=== PATIENT | female | born 1960 | race American Indian/Alaskan Native ===

== ENCOUNTER 2018-04-06 06:40 | Inpatient (IN) | payer MEDICARE, MEDICAID ==
[~2018-04-06 06:40] MED LIST: Absorbable Gelatin Sponge Size 100 ONE; Bacitracin Ointment 30 GM TUBE ONE; Lidocaine Hydrochloride 0 ML INJ ONE; Lidocaine/Epinephrine 1% 1:100000 10 ML IJ ONE; Sodium Chloride 0.9% 60 ML IV ONE; Thrombin Topical 5,000 Int Units Spray Kit ONE; ceFAZolin IV 1 gm in Dextrose 0 GM/0 ML BAG IVPB ONE
[2018-04-06] MEDS ORDERED: Propofol 10 mg/ml 2,000 MG/200 ML VIAL ONE (07:46)
[2018-04-06] MEDS ORDERED: Propofol 10 mg/ml Inj (20 ML) ONE (07:54)
[2018-04-06] MEDS ORDERED: Midazolam 2 MG/2 ML VIAL ONE (07:55)
[2018-04-06] MEDS ORDERED: Clindamycin 600mg/50ml NS 600 MG/50 ML BAG IVPB ONE (08:02)
[2018-04-06 08:04] LABS: SQUAMOUS EPITHIAL 6 /hpf (0-5); URINE BACTERIA RARE (<OCC); URINE BILIRUBIN NEGATIVE (NEGATIVE); URINE BLOOD NEGATIVE (NEGATIVE); URINE CLARITY Hazy (Clear); URINE COLOR Amber (YELLOW); URINE GLUCOSE (UA) NORMAL (Normal); URINE HYALINE CAST >20 /lpf (0-2); URINE LEUKOCYTE ESTERASE 2+ Leu/uL (Negative); URINE PROTEIN 1+ mg/dL (NEGATIVE)
[2018-04-06] MEDS ORDERED: Bupivacaine Liposomal Inj 20 ml INJ ONE (08:15)
[2018-04-06] MEDS ORDERED: Bacitracin 50,000 UNIT in Sodium Chloride 0.9% Irrig 1,000 ML IR SCH (08:15)
[2018-04-06] MEDS ORDERED: Lidocaine 1%/Epinephrine 1:100000 30 ml vial INJ ONE (08:45)
[2018-04-06] MEDS: Bupivacaine 0.25% 20 ML INJ IJ ONE ×2 (09:06→10:55)
[2018-04-06] MEDS ORDERED: Albuterol 0.083% Inhal Sol (2.5 mg/3 mL) UD INH PRN (11:27)
[2018-04-06] MEDS: HYDROmorphone 0.5 mg/0.5 ml ISec IVP PRN ×5 (11:41→13:08)
[2018-04-06] MEDS ORDERED: Dexamethasone 4 mg/1 ml IVP PRN (12:00)
--- NOTE | 2018-04-06 12:29 | RAD ---
Date of service: 04/06/2018 PROCEDURE: Intraoperative fluoroscopy HISTORY: DISC DISPLACEMENT LUM. REGION COMPARISON: Not available TECHNIQUE: Intraoperative fluoroscopy was provided for interventional pain management procedure. Total time of fluoroscopy was 128.2 seconds. Cumulative dose is 90.11 mGy. FINDINGS: Three fluoroscopic spot films are submitted. IMPRESSION: Fluoroscopy provided.
[2018-04-06] MEDS ORDERED: Lactated Ringer's 1,000 ML IV ONE (13:30)
--- NOTE | 2018-04-06 14:03 | CT ---
Date of service: 04/06/2018 PROCEDURE: CT Lumbar Spine without contrast HISTORY: Postoperative assessment COMPARISON: Made with plain film radiographs of the and MRI of the lumbar spine in both dated 12/23/2017 TECHNIQUE: Axial computed tomography images were obtained of the lumbar spine without the use of intravenous contrast. Coronal and sagittal reformatted images were created and reviewed. Radiation dose: Total exam DLP = 1441.92 mGy-cm. This CT exam was performed using one or more of the following dose reduction techniques: Automated exposure control, adjustment of the mA and/or kV according to patient size, and/or use of iterative reconstruction technique. . FINDINGS: VERTEBRAE: No acute compression fractures no retropulsed fragments. DISCS/SPINAL CANAL/NEURAL FORAMINA: L1-2: Disc space height maintained. No disc herniation or significant disc bulge. Facets also mildly hypertrophic. . L2-3: Disc space height maintained. No disc herniation or significant disc bulge. . The facets are mildly hypertrophic. . L3-4: There is adequate disc height. Small central and bilateral disc bulge seen to better advantage on prior MRI is less well appreciated on this exam in part due to differences in modality as well as the aforementioned streak and beam hardening artifact. The facets remain mildly hypertrophic. Central canal appears slightly narrowed as well. Exit foramina appear adequate. L4-5: Bilateral laminectomy changes seen extending from the superior aspect of the L4 through the inferior L5 levels. . Posterior fixation has been accomplished by placement of short segment bilateral Arguello rods which are attached to the right and left pedicles of the L4 and L5 segments. The central bony canal is quite capacious however soft tissue contents of the canal is poorly seen due to significant crossing streak and beam hardening artifact particularly at the level of the fixation screws. . There are postoperative changes seen in the mid and right posterior paraspinal soft tissues which include a few bubbles of air what appears represent a small amount of fluid and infiltration changes of the overlying subcutaneous fat extending posteriorly was the skin surface. Subcutaneous infiltration changes and a few scattered bubbles of air are also seen superiorly within the posterior paraspinal soft tissues bilaterally extending up to the L2-L3 disc space level and inferiorly to below the L5-S1 level. . L5-S1: There is are relatively adequate disc height. Small left parasagittal and left lateral disc herniation is present at this level. Facets are hypertrophic and flavum buckled. There is resultant bilateral lateral recess stenosis left greater than right. Central canal also appears mildly stenotic. Exit foramina appear adequate. . PARASPINAL SOFT TISSUES: As above OTHER FINDINGS: In situ unclamped Barber catheter over which the bladder is collapsed. IMPRESSION: Bilateral laminectomy L4-L5 level as detailed above. Broad-based disc bulge with left parasagittal disc herniation component L5-S1 level. Canal contents over the fused levels and difficult to evaluate due to streak and beam hardening artifact. There are expected postoperative changes within the posterior paraspinal soft tissues centrally and to the right more so than left. Mild infiltration changes and bubbles of air seen superiorly to the Changes result in bilateral lateral recess left greater than right and mild central canal stenosis.
[2018-04-06] MEDS: Potassium Ch 20mEq in D5-1/2NS 1,000 ML IV SCH (17:48)
[2018-04-06] MEDS ORDERED: HYDROmorphone 1 mg/ml ISec IVP STA (18:04)
[2018-04-06] MEDS: Fluticasone-Salmeterol 250-50mcg Diskus INH SCH (19:34)
[2018-04-06] MEDS: Albuterol-Ipratrop 3 mg / 0.5 (3 ml) UD INH SCH (19:34)
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
[2018-04-07 01:29] VITALS: RESP 20
[2018-04-07] MEDS: Potassium Ch 20mEq in D5-1/2NS 1,000 ML IV SCH ×3 (05:42→12:30)
[2018-04-07] MEDS: Albuterol-Ipratrop 3 mg / 0.5 (3 ml) UD INH SCH ×3 (07:35→22:45)
[2018-04-07] MEDS: Fluticasone-Salmeterol 250-50mcg Diskus INH SCH ×2 (07:35→22:45)
[2018-04-07] MEDS ORDERED: Tiotropium 18 mcg Cap For Inhalation IH SCH (08:00)
--- NOTE | 2018-04-07 09:42 | CP.PCM.PN ---
Subjective - Date & Time of Evaluation Date of Evaluation: 04/07/18 Time of Evaluation: 09:41 - Subjective Subjective: pod 1 doing very well has usual op site pain good st no dec to pin adv act Objective - Vital Signs/Intake and Output Vital Signs (last 24 hours): Temp Pulse Resp BP Pulse Ox 98.1 F 88 20 105/64 100 04/07/18 07:15 04/07/18 07:15 04/07/18 07:15 04/07/18 07:15 04/07/18 07:15 Intake and Output: 04/07/18 04/07/18 06:59 18:59 Intake Total 980 Balance 980 - Medications Medications: Current Medications Albuterol Sulfate (Albuterol 0.083% Inhal Geno (2.5 Mg/3 Ml) Ud) 2.5 mg INH ONCE PRN PRN Reason: Wheezing Albuterol/Ipratropium (Duoneb 3 Mg/0.5 Mg (3 Ml) Ud) 3 ml INH RQ6 [facility] Last Admin: 04/07/18 07:35 Dose: 3 ml Enoxaparin Sodium (Lovenox) 40 mg SC DAILY [facility] Hydromorphone/Sodium Chloride (Dilaudid Heavy Forging Machine Operator) 6 mg IV Q4H PRN; Protocol PRN Reason: Pain, severe (8-10) Last Admin: 04/06/18 19:42 Dose: 6 mg Potassium Chloride/Dextrose/Sod Cl (Potassium Chl 20 Meq In D5-1/2ns) 1,000 mls @ 80 mls/hr IV .[id number] [facility] Last Admin: 04/07/18 05:42 Dose: 80 mls/hr Loratadine (Claritin) 10 mg PO DAILY [facility] Metoclopramide HCl (Reglan) 10 mg PO QID [facility] Last Admin: 04/06/18 22:09 Dose: 10 mg Montelukast Sodium (Singulair) 10 mg PO DAILY [facility] Pantoprazole Sodium (Protonix Ec Tab) 40 mg PO DAILY [facility] Polyethylene Glycol (Miralax) 17 gm PO BID PRN PRN Reason: Constipation Rosuvastatin Calcium (Crestor) 10 mg PO HS [facility] Last Admin: 04/06/18 22:08 Dose: 10 mg Fluticasone/Salmeterol (Advair Diskus 250/50) 1 puff INH RQ12 [facility] Last Admin: 04/07/18 07:35 Dose: Not Given Sucralfate (Carafate Tab) 1 gm PO QID [facility] Last Admin: 04/06/18 22:08 Dose: 1 gm Tiotropium [place] (Spiriva) 18 mcg IH RQD [facility]
[2018-04-07] MEDS: Pantoprazole 40 mg EC Tab PO SCH (10:45)
[2018-04-07] MEDS: Enoxaparin 40 mg Syringe SC SCH (10:46)
[2018-04-07] MEDS: oxyCODONE 20 mg ER Tab (oxyCONTIN) PO SCH ×2 (10:50→22:17)
--- NOTE | 2018-04-07 11:14 | HP ---
Copied To: Ross Metcalf MD Attending MD: Ross Metcalf MD CHIEF COMPLAINT: The patient is status post back surgery. HISTORY OF PRESENT ILLNESS: Nhung is a 57-year-old female with history of obesity, hypertension, and bronchial asthma. She was compliant with her diet medication in [place]. The patient underwent back surgery by Neurosurgery, and she was admitted to the floor and Medicine was called in for medical management. The patient is postop. She is weak. She is awake and alert. She denies any shortness of breath. She denies any chest pain. No nausea or vomiting. She denies any polyuria, polydipsia, polyphagia. She denies any history of diabetes. She denies any chest pain. She denies any history of prior heart problems. The patient denies any cough, sore throat, runny nose. There is no history of dysuria, hematuria, polyuria. She denies any sneezing, itchy eyes, itchy nose. PAST MEDICAL HISTORY: Bronchial asthma, hypertension, hyperlipidemia. SOCIAL HISTORY: She is nonsmoker and nondrinker. CURRENT MEDICATIONS AT HOME: She is on Spiriva, Carafate, Reglan, Xyzal, Lipitor, Norvasc, Singulair, Symbicort, DuoNeb, albuterol, Cozaar, Dexilant, and MiraLAX. ALLERGIES: UNKNOWN ALLERGIES. PHYSICAL EXAMINATION: GENERAL: Middle-aged female, postop weak, but in no apparent distress. VITAL SIGNS: Blood pressure 105/71, pulse 77, respiratory rate 18, temperature 99.4. SKIN: Dry. Poor turgor. No bruises. No purpura. No ecchymosis. HEENT: Atraumatic, normocephalic. Negative pallor. No acute jaundice. Extraocular movements are intact. NECK: Supple. No JVD. No lymph node. No thyromegaly. No carotid bruits. CHEST WALL: Bilateral symmetrical expansion. LUNGS: No rales. No rhonchi. CVS: S1 and S2, regular. No heaves noted. ABDOMEN: Soft and nontender. Bowel sounds are positive. SPINE: The patient has a dressing. RECTAL: No masses. No bleed. PELVIC: Negative for masses. No vaginal discharge. EXTREMITIES: No clubbing, cyanosis, or edema. BATCH MAKER: Awake, alert, and oriented x3. ASSESSMENT: 1. Spinal surgery. 2. Chronic stable bronchial asthma. 3. Hypertension. 4. Obesity. PLAN: Admit. Postop care. Monitor the patient well at the time of discharge. The patient is stable for now. Ross Metcalf MD
[2018-04-07] MEDS: Oxycodone/Acetaminophen 5/325 mg Tab PO PRN ×2 (14:10→18:37)
[2018-04-07] MEDS: POLYETHYLENE GLYCOL 3350 17 GM/Dose PACKET PO PRN (18:42)
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
[2018-04-08] MEDS: Albuterol-Ipratrop 3 mg / 0.5 (3 ml) UD INH SCH ×4 (01:19→19:53)
[2018-04-08] MEDS: Fluticasone-Salmeterol 250-50mcg Diskus INH SCH ×2 (07:42→22:25)
--- NOTE | 2018-04-08 10:03 | CP.PCM.PN ---
Subjective - Date & Time of Evaluation Date of Evaluation: 04/08/18 Time of Evaluation: 10:02 - Subjective Subjective: still has sig lbp no neuro deficits no leg pain, some cramping L thigh adv act needs to go to subacute Objective - Vital Signs/Intake and Output Vital Signs (last 24 hours): Temp Pulse Resp BP Pulse Ox 98.1 F 111 H 20 115/66 99 04/08/18 07:50 04/08/18 07:50 04/08/18 07:50 04/08/18 07:50 04/08/18 07:50 Intake and Output: 04/08/18 04/08/18 06:59 18:59 Intake Total 700 Balance 700 - Medications Medications: Current Medications Albuterol Sulfate (Albuterol 0.083% Inhal Geno (2.5 Mg/3 Ml) Ud) 2.5 mg INH ONCE PRN PRN Reason: Wheezing Albuterol/Ipratropium (Duoneb 3 Mg/0.5 Mg (3 Ml) Ud) 3 ml INH RQ6 [facility] Last Admin: 04/08/18 07:42 Dose: 3 ml Enoxaparin Sodium (Lovenox) 40 mg SC DAILY [facility] Last Admin: 04/07/18 10:46 Dose: 40 mg Loratadine (Claritin) 10 mg PO DAILY [facility] Last Admin: 04/07/18 10:45 Dose: 10 mg Metoclopramide HCl (Reglan) 10 mg PO QID [facility] Last Admin: 04/07/18 22:18 Dose: 10 mg Montelukast Sodium (Singulair) 10 mg PO DAILY [facility] Last Admin: 04/07/18 10:45 Dose: 10 mg Oxycodone HCl (Oxycontin Extended Release Tab) 20 mg PO Q12 [facility] Last Admin: 04/07/18 22:17 Dose: 20 mg Oxycodone/Acetaminophen (Percocet 5/325 Mg Tab) 1 tab PO Q4H PRN PRN Reason: Pain, moderate (4-7) Stop: 04/10/18 09:41 Last Admin: 04/07/18 18:37 Dose: 1 tab Pantoprazole Sodium (Protonix Ec Tab) 40 mg PO DAILY [facility] Last Admin: 04/07/18 10:45 Dose: 40 mg Polyethylene Glycol (Miralax) 17 gm PO BID PRN PRN Reason: Constipation Last Admin: 04/07/18 18:42 Dose: 17 gm Rosuvastatin Calcium (Crestor) 10 mg PO HS [facility] Last Admin: 04/07/18 22:17 Dose: 10 mg Fluticasone/Salmeterol (Advair Diskus 250/50) 1 puff INH RQ12 [facility] Last Admin: 04/08/18 07:42 Dose: 1 puff Sucralfate (Carafate Tab) 1 gm PO QID [facility] Last Admin: 04/07/18 22:17 Dose: 1 gm Tiotropium [place] (Spiriva) 18 mcg IH RQD [facility]
[2018-04-08] MEDS: oxyCODONE 20 mg ER Tab (oxyCONTIN) PO SCH ×2 (10:18→22:08)
[2018-04-08] MEDS: Pantoprazole 40 mg EC Tab PO SCH (10:19)
[2018-04-08] MEDS: Enoxaparin 40 mg Syringe SC SCH (10:20)
--- NOTE | 2018-04-08 11:02 | PN ---
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 She is more alert. She has back pain. She is on physiotherapy. PHYSICAL EXAMINATION: VITAL SIGNS: Afebrile. Blood pressure is 103/70, pulse 100, respiratory rate 20, temperature 98.2. LUNGS: Clear. No shortness of breath. CVS: S1 and S2 are regular. ABDOMEN: Soft. ASSESSMENT: 1. Status post spinal surgery with back pain. 2. Bronchial asthma. PLAN: Continue current medication, physical therapy, and rehab. Ross Metcalf MD
[2018-04-08] MEDS: POLYETHYLENE GLYCOL 3350 17 GM/Dose PACKET PO PRN (18:44)
[2018-04-08] MEDS: Oxycodone/Acetaminophen 5/325 mg Tab PO PRN (18:51)
--- NOTE | 2018-04-08 23:20 | CP.PCM.PN ---
Objective - Vital Signs/Intake and Output Vital Signs (last 24 hours): Temp Pulse Resp BP Pulse Ox 98.2 F 102 H 20 122/90 99 04/08/18 16:00 04/08/18 16:00 04/08/18 16:00 04/08/18 16:00 04/08/18 16:00 - Medications Medications: Current Medications Albuterol Sulfate (Albuterol 0.083% Inhal [place] (2.5 Mg/3 Ml) Ud) 2.5 mg INH ONCE PRN PRN Reason: Wheezing Albuterol/Ipratropium (Duoneb 3 Mg/0.5 Mg (3 Ml) Ud) 3 ml INH RQ6 [facility] Last Admin: 04/08/18 19:53 Dose: 3 ml Enoxaparin Sodium (Lovenox) 40 mg SC DAILY [facility] Last Admin: 04/08/18 10:20 Dose: 40 mg Loratadine (Claritin) 10 mg PO DAILY [facility] Last Admin: 04/08/18 10:19 Dose: 10 mg Metoclopramide HCl (Reglan) 10 mg PO QID [facility] Last Admin: 04/08/18 22:08 Dose: 10 mg Montelukast Sodium (Singulair) 10 mg PO DAILY [facility] Last Admin: 04/08/18 10:38 Dose: 10 mg Oxycodone HCl (Oxycontin Extended Release Tab) 20 mg PO Q12 [facility] Last Admin: 04/08/18 22:08 Dose: 20 mg Oxycodone/Acetaminophen (Percocet 5/325 Mg Tab) 1 tab PO Q4H PRN PRN Reason: Pain, moderate (4-7) Stop: 04/10/18 09:41 Last Admin: 04/08/18 18:51 Dose: 1 tab Pantoprazole Sodium (Protonix Ec Tab) 40 mg PO DAILY [facility] Last Admin: 04/08/18 10:19 Dose: 40 mg Polyethylene Glycol (Miralax) 17 gm PO BID PRN PRN Reason: Constipation Last Admin: 04/08/18 18:44 Dose: 17 gm Rosuvastatin Calcium (Crestor) 10 mg PO HS [facility] Last Admin: 04/08/18 22:07 Dose: 10 mg Fluticasone/Salmeterol (Advair Diskus 250/50) 1 puff INH RQ12 [facility] Last Admin: 08/17/18 22:25 Dose: 1 puff Sucralfate (Carafate Tab) 1 gm PO QID [facility] Last Admin: 04/08/18 22:07 Dose: [address] (Spiriva) 18 mcg IH RQD [facility]
[2018-04-09] MEDS: Albuterol-Ipratrop 3 mg / 0.5 (3 ml) UD INH SCH ×3 (01:56→13:54)
--- NOTE | 2018-04-09 03:49 | PN ---
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 She is feeling better. She has back pain. She is on physiotherapy. She is for subacute rehab. PHYSICAL EXAMINATION: VITAL SIGNS: Blood pressure 131/69, pulse 77, respiratory rate 20, temperature 99. LUNGS: Clear. CARDIOVASCULAR SYSTEM: S1 and S2 are regular. ABDOMEN: Soft. ASSESSMENT: 1. Status post spinal surgery. 2. Bronchial asthma. PLAN: Continue postop care. Monitor the patient. Ross Metcalf MD
[2018-04-09] MEDS: Fluticasone-Salmeterol 250-50mcg Diskus INH SCH (07:50)
[2018-04-09] MEDS: Pantoprazole 40 mg EC Tab PO SCH (09:43)
[2018-04-09] MEDS: oxyCODONE 20 mg ER Tab (oxyCONTIN) PO SCH (09:43)
[2018-04-09] MEDS: Enoxaparin 40 mg Syringe SC SCH (09:44)
--- NOTE | 2018-04-09 13:02 | CP.PCM.PN ---
Subjective - Date & Time of Evaluation Date of Evaluation: 04/09/18 Time of Evaluation: 13:01 - Subjective Subjective: PATIENT WAS ADMITTED FOR DISC DISPLACEMENT AAOX3 / SITTING AT THE BEDSIDE/ DENIES CHEST PAIN OR SOB NO SIGN OF DISTRESS NOTED Objective - Vital Signs/Intake and Output Vital Signs (last 24 hours): Temp Pulse Resp BP Pulse Ox 98.1 F 118 H 20 117/76 98 04/09/18 07:10 04/09/18 09:46 04/09/18 07:10 04/09/18 09:46 04/09/18 07:10 - Medications Medications: Current Medications Albuterol Sulfate (Albuterol 0.083% Inhal [place] (2.5 Mg/3 Ml) Ud) 2.5 mg INH ONCE PRN PRN Reason: Wheezing Albuterol/Ipratropium (Duoneb 3 Mg/0.5 Mg (3 Ml) Ud) 3 ml INH RQ6 [facility] Last Admin: 04/09/18 08:03 Dose: 3 ml Enoxaparin Sodium (Lovenox) 40 mg SC DAILY [facility] Last Admin: 04/09/18 09:44 Dose: 40 mg Loratadine (Claritin) 10 mg PO DAILY [facility] Last Admin: 04/09/18 09:43 Dose: 10 mg Metoclopramide HCl (Reglan) 10 mg PO QID [facility] Last Admin: 04/09/18 09:43 Dose: 10 mg Montelukast Sodium (Singulair) 10 mg PO DAILY [facility] Last Admin: 04/09/18 09:43 Dose: 10 mg Oxycodone HCl (Oxycontin Extended Release Tab) 20 mg PO Q12 [facility] Last Admin: 04/09/18 09:43 Dose: 20 mg Oxycodone/Acetaminophen (Percocet 5/325 Mg Tab) 1 tab PO Q4H PRN PRN Reason: Pain, moderate (4-7) Stop: 04/10/18 09:41 Last Admin: 04/08/18 18:51 Dose: 1 tab Pantoprazole Sodium (Protonix Ec Tab) 40 mg PO DAILY [facility] Last Admin: 04/09/18 09:43 Dose: 40 mg Polyethylene Glycol (Miralax) 17 gm PO BID PRN PRN Reason: Constipation Last Admin: 04/08/18 18:44 Dose: 17 gm Rosuvastatin Calcium (Crestor) 10 mg PO HS [facility] Last Admin: 04/08/18 22:07 Dose: 10 mg Fluticasone/Salmeterol (Advair Diskus 250/50) 1 puff INH RQ12 [facility] Last Admin: 04/09/18 07:50 Dose: 1 puff Sucralfate (Carafate Tab) 1 gm PO QID [facility] Last Admin: 04/09/18 09:43 Dose: 1 gm Tiotropium [place] (Spiriva) 18 mcg IH RQD [facility] Assessment and Plan - Assessment and Plan (Free Text) Assessment: PATIENT SEEN AND EXAMINED AT THE BEDSIDE SEEN BY PT AND NEURO RECOMMEND SANJUANITA VITAL STABLE/ LAB WNL LUNG SOUND CLEAR FAWAD DISCUSS WITH DR COOK WHO CLEAR FOR DC PLACE UNDER THE SERVICE OF DR COOK AT [facility] ---CALL FOR ADMITTING ORDER FOLLOW UP WITH DR STRATTON CONTINUE ALL MED MED REC ACTIVITY TOLERATED AND FACILITY PROTOCOL CALL DR COOK OR GO TO THE EMERGENCY ROOM IF SYMPTOMS RETURN OR WORSENING DISCUSS WITH PATIENT WHO AGREE AND VERBALIZED UNDERSTANDING
--- NOTE | 2018-04-09 13:27 | CP.PCM.PN ---
Subjective - Date & Time of Evaluation Date of Evaluation: 04/09/18 Time of Evaluation: 13:25 - Subjective Subjective: SPINE - POD #3 Pt OOB in chair receiving resp tx. No new complaints. Was nauseous this am. Received her Carafate and Reglan and feels better. Amb 20' with PT yesterday VSS. Afebrile. Moves extremities actively. Neuro grossly intact Dressing clean and dry. Plan: Transfer to rehab bed today Objective - Vital Signs/Intake and Output Vital Signs (last 24 hours): Temp Pulse Resp BP Pulse Ox 98.1 F 118 H 20 117/76 98 04/09/18 07:10 04/09/18 09:46 04/09/18 07:10 04/09/18 09:46 04/09/18 07:10 - Medications Medications: Current Medications Albuterol Sulfate (Albuterol 0.083% Inhal [place] (2.5 Mg/3 Ml) Ud) 2.5 mg INH ONCE PRN PRN Reason: Wheezing Albuterol/Ipratropium (Duoneb 3 Mg/0.5 Mg (3 Ml) Ud) 3 ml INH RQ6 [facility] Last Admin: 04/09/18 08:03 Dose: 3 ml Enoxaparin Sodium (Lovenox) 40 mg SC DAILY [facility] Last Admin: 04/09/18 09:44 Dose: 40 mg Loratadine (Claritin) 10 mg PO DAILY [facility] Last Admin: 04/09/18 09:43 Dose: 10 mg Metoclopramide HCl (Reglan) 10 mg PO QID [facility] Last Admin: 04/09/18 13:02 Dose: 10 mg Montelukast Sodium (Singulair) 10 mg PO DAILY [facility] Last Admin: 04/09/18 09:43 Dose: 10 mg Oxycodone HCl (Oxycontin Extended Release Tab) 20 mg PO Q12 [facility] Last Admin: 04/09/18 09:43 Dose: 20 mg Oxycodone/Acetaminophen (Percocet 5/325 Mg Tab) 1 tab PO Q4H PRN PRN Reason: Pain, moderate (4-7) Stop: 04/10/18 09:41 Last Admin: 04/08/18 18:51 Dose: 1 tab Pantoprazole Sodium (Protonix Ec Tab) 40 mg PO DAILY [facility] Last Admin: 04/09/18 09:43 Dose: 40 mg Polyethylene Glycol (Miralax) 17 gm PO BID PRN PRN Reason: Constipation Last Admin: 04/08/18 18:44 Dose: 17 gm Rosuvastatin Calcium (Crestor) 10 mg PO HS [facility] Last Admin: 04/08/18 22:07 Dose: 10 mg Fluticasone/Salmeterol (Advair Diskus 250/50) 1 puff INH RQ12 [facility] Last Admin: 04/09/18 07:50 Dose: 1 puff Sucralfate (Carafate Tab) 1 gm PO QID [facility] Last Admin: 04/09/18 13:02 Dose: 1 gm Tiotropium [place] (Spiriva) 18 mcg IH RQD [facility]
[2018-04-09] MEDS ORDERED: Bacitracin 500 Units/gm Oint Foilpak UD TOP SCH (13:30)
[2018-04-09 17:18] VITALS: BP 117/72; PULSE 115; TEMP 98.3; O2SAT 99
--- NOTE | 2018-04-09 21:55 | CP.PCM.DIS ---
Provider - Provider Date of Admission: 04/06/18 06:40 Attending physician: Brandon Stratton MD Hospital Course - Lab Results Lab Results: Most Recent Lab Values Urine Color [place] (YELLOW) 04/06/18 07:21 Urine Clarity Hazy (Clear) 04/06/18 07:21 Urine pH 5.0 (5.0-8.0) 04/06/18 07:21 Ur Specific [place] 1.021 (1.003-1.030) 04/06/18 07:21 Urine Protein 1+ mg/dL (NEGATIVE) H 04/06/18 07:21 Urine Glucose (UA) Normal mg/dL (Normal) 04/06/18 07:21 Urine Ketones Negative mg/dL (NEGATIVE) 04/06/18 07:21 Urine Blood Negative (NEGATIVE) 04/06/18 07:21 Urine Nitrate Negative (NEGATIVE) 04/06/18 07:21 Urine Bilirubin Negative (NEGATIVE) 04/06/18 07:21 Urine Urobilinogen 2.0 mg/dL (0.2-1.0) H 04/06/18 07:21 Ur Leukocyte Esterase 2+ Joey/uL (Negative) H 04/06/18 07:21 Urine WBC (Auto) 7 /hpf (0-5) H 04/06/18 07:21 Urine RBC (Auto) 3 /hpf (0-3) 04/06/18 07:21 Ur Squamous Epith Cells 6 /hpf (0-5) H 04/06/18 07:21 Urine Bacteria Rare (<OCC) 04/06/18 07:21 Hyaline Casts >20 /lpf (0-2) H 04/06/18 07:21 Blood Type O POSITIVE 04/06/18 07:21 Antibody Screen Negative 04/06/18 07:21 Discharge Plan - Follow Up Plan Condition: GOOD Disposition: REHAB FACILITY/REHAB UNIT Instructions: Spinal Fusion, Heart Healthy Diet, Asthma, Adult (DC), Postspine Surgery Precautions Additional Instructions: PLACE UNDER THE SERVICE OF DR COOK AT [facility] [place] ---CALL FOR ADMITTING ORDER FOLLOW UP WITH DR STRATTON CONTINUE ALL MED MED REC ACTIVITY TOLERATED AND FACILITY PROTOCOL CALL DR COOK OR GO TO THE EMERGENCY ROOM IF SYMPTOMS RETURN OR WORSENING Referrals: Brandon Stratton MD [Staff Provider] - Ross Cook MD [Staff Provider] -
--- NOTE | 2018-04-10 21:24 | DS ---
Copied To: Ross Metcalf MD Attending MD: Ross Metcalf MD ADMISSION DIAGNOSIS: Back pain. DISCHARGE DIAGNOSES: Status post spinal surgery, hypertension, type 2 diabetes, bronchial asthma. HISTORY OF PRESENT ILLNESS: This is a 57-year-old female with a history of back problems, bronchial asthma, hypertension, diabetes, obesity who came in because of the back pain. She underwent spinal surgery and after spinal surgery, she was started some pain management, patient-controlled analgesia, subsequently physiotherapy. The patient's condition improved and she is being discharged to subacute rehab. Condition upon discharge is stable. PHYSICAL EXAMINATION: GENERAL: She is afebrile. VITAL SIGNS: Blood pressure 117/72, pulse 72, respiratory rate 20, temperature 98.3. LABORATORY DATA: Urinalysis showed hyaline casts. The patient's condition is stable while discharge. She has been discharged with outpatient followup. Ross Metcalf MD
--- NOTE | 2018-04-11 09:34 | OP ---
Copied To: Brandon Conklin MD Attending MD: Brandon Conklin MD PROCEDURE DATE: 04/06/2018 SURGEON: Brandon Conklin MD CO-SURGEON: Helder French MD PREOPERATIVE DIAGNOSES: Lumbar instability, spondylolisthesis, L4-L5. POSTOPERATIVE DIAGNOSES: Lumbar instability, spondylolisthesis, L4-L5. OPERATIVE PROCEDURE: Lateral fusion L4-L5 with non-segmental instrumentation harvesting right posterior iliac crest graft in form of bone marrow. DESCRIPTION OF PROCEDURE: The patient was brought to the operating room, intubated appropriately, and turned prone onto the Jarred frame. Her back was prepped and draped in the usual manner. C-arm fluoroscopy, SSEP, EMG potentials were monitored throughout the case. Neurodiagnostic studies were stable throughout. After localizing the area of the L4 and L5 pedicles, an incision was planned just above and just below that. The previous incision after prepping and draping was instilled with lidocaine with epinephrine and incised sharply, taken down through the subcuticular tissue. We came to the lumbar dorsal fascia. We went out laterally over the paraspinal musculature and to the muscle splitting incision first we started on the patient's right and split the muscle, bringing us down to the transverse processes. Using C-arm fluoroscope, we identified the appropriate transverse processes on fluoro and then proceeded to strip the transverse processes of L4 and L5 using the combination of [place] rongeur and [place] cautery from the musculature attached to it exposing the transverse processes of L4 and L5 as well as the facet joint laterally at L4-L5. We again verified our location and made certain that this was correct. We proceeded then to use the high speed drill to decorticate these bony structures. We placed the trocar into the right posterior iliac crest, withdrew 90 mL of bone marrow, for harvest processing to be applied to a Conform strips as well as the contents of an IC chamber. After doing such, we returned to the lumbar spine and we placed pedicle screws in the following manner. Under the C-arm fluoroscopy, we identified the site for the entry of the pedicle, used the drill to open the cortex, passed the Steffee probe under C-arm fluoroscopy and EMG guidance into the vertebral body, verified its location, and then proceeded to sound the channel with probe and then use an [employer] spine pedicle screw 6 x 40. We obtained AP and lateral views and then proceeded to place a second screw at L5 in the same manner. At this point, we took Infuse, placed it over the lateral bony structures that are previously decorticated and then placed a prebent lordotic jennie over the screw heads, tightened and torqued the caps. The Conform socked in bone marrow and the IC chamber soaked in bone marrow over the Infuse. We obtained final x-rays on that side and reapproximated muscle and fascia using 0 Vicryl. This procedure was then repeated on the left side exactly the same. Final AP and lateral films were taken. The wound was irrigated. Hemostasis was meticulous. Exparel and Marcaine were instilled around into the paraspinal muscles. The subcuticular was reapproximated with 2-0 Vicryl and skin sofia were applied to the skin and sterile dressing was applied. The patient was taken to the recovery room in stable condition. All counts were correct. There was no specimen. Blood loss was . Brandon Conklin MD
== END 2018-04-09 18:45 | DRG 460 ==
LOC: C.9S 06:40 → C.6T 16:17
PROVIDERS: ADMIT Neurological Surgery; ATTEND Neurological Surgery
PROC: 07DR3ZZ Extraction of Iliac Bone Marrow, Percutaneous Approach (ICD-10-PCS; 2018-04-06)
PROC: 0SG0071 Fusion of Lumbar Vertebral Joint with Autologous Tissue Substitute, Posterior Approach, Posterior Column, Open Approach (ICD-10-PCS; principal; 2018-04-06 07:30)
DX: M51.26 Other intervertebral disc displacement, lumbar region (principal); M53.2X6 Spinal instabilities, lumbar region; M43.16 Spondylolisthesis, lumbar region; I10 Essential (primary) hypertension; E11.9 Type 2 diabetes mellitus without complications; J45.909 Unspecified asthma, uncomplicated; E78.5 Hyperlipidemia, unspecified; E78.00 Pure hypercholesterolemia, unspecified; G47.30 Sleep apnea, unspecified; E66.9 Obesity, unspecified; Z87.891 Personal history of nicotine dependence